=== PATIENT | female | born 1995 | race American Indian/Alaskan Native ===

== ENCOUNTER 2021-02-18 18:32 | Emergency (ER) | payer BC ==
[2021-02-18 20:13] LABS: Bacteria,Urine 1+ /HPF (Negative); Bilirubin,Urine NEG (Negative); Blood,Urine NEG (Negative); Color,Urine Yellow (Yellow); Mucus,Urine FEW /HPF; RBC,Urine < 1.0 /HPF (0.0-6.0); Urobilinogen,Urine < 2.0 mg/dL (<2.0); WBC,Urine < 1.0 /HPF (0.0-6.0)
[2021-02-18 20:39] LABS: Basophils % (Auto) 0.4 % (0.0-1.8); Eosinophils # (Auto) 0.1 K/mm3 (0.0-0.4); Eosinophils % (Auto) 0.9 % (0.0-4.3); Hematocrit 39.5 % (30.3-42.9); Lymphocytes # (Auto) 2.8 K/mm3 (1.2-5.4); Lymphocytes % (Auto) 36.6 % (13.4-35.0); Mean Corpuscular HGB Conc 33 % (30-34); Mean Corpuscular Volume 83 fl (79-97); Monocytes # (Auto) 0.6 K/mm3 (0.0-0.8); Monocytes % (Auto) 7.4 % (0.0-7.3); Platelet Count 185 K/mm3 (140-440); Red Blood Count 4.74 M/mm3 (3.65-5.03); Red Cell Distribution Width 13.9 % (13.2-15.2)
[2021-02-18] MEDS ORDERED: ACETAMINOPHEN 500 MG TAB PO ONE (21:32)
[2021-02-18 22:08] LABS: Alanine Aminotransferase 9 units/L (7-56); Albumin 3.8 g/dL (3.9-5); Blood Urea Nitrogen 6 mg/dL (7-17); Calcium 8.6 mg/dL (8.4-10.2); Hemolysis Index 7
[2021-02-18 22:17] LABS: BUN/Creatinine Ratio 9
--- NOTE | 2021-02-18 23:53 | Emergency Department Report ---
ED Female HPI - General Chief complaint: Vaginal Bleeding Stated complaint: CRAMPS Source: patient Mode of arrival: Ambulatory Limitations: No Limitations - History of Present Illness Initial comments: Patient is a A0 25-year-old -[place] female who is approximately 8 weeks gestation and who presents to the ED with diffuse lower abdominal pain and vaginal spotting for the last 2 days. Patient states that the spotting has been intermittent but the pain in the lower abdomen has been persistent and constant. Patient states that she has an appointment with her [employer] physician in the next 4 days but decided come to the ED for evaluation when she noticed that she was having some vaginal spotting. Patient denies dysuria, urinary frequency and urgency, vaginal discharge, low back pain, chest pain, shortness of breath, fever, chills, nausea and vomiting or diarrhea. MD Complaint: vaginal bleeding, pelvic pain -: Sudden, days(s) (2) Location: suprapubic Radiation: non-radiating Severity: moderate Severity scale (0 -10): 6 Quality: cramping, sharp Consistency: constant Improves with: none Worsens with: none Are you Now?: Yes (8 weeks gestation) Associated Symptoms: denies other symptoms, vaginal bleeding, abdominal pain (suprapubic), loss of appetite. denies: vaginal discharge, nausea/vomiting, fever/chills, headaches, dysuria, hematuria, rash, seizure, shortness of breath, syncope, weakness - Related Data Sexually active: Yes : 3 Para: 2 A: 0 Previous Rx's Medication Instructions Recorded Last Taken Type Acetaminophen [Tylenol] 500 mg PO Q6HR PRN #30 tablet 02/19/21 Unknown Rx Allergies Allergy/AdvReac Type Severity Reaction Status Date / Time No Known Allergies Allergy Unverified 02/18/21 19:41 ED Review of Systems ROS: Stated complaint: CRAMPS Other details as noted in HPI Constitutional: denies: chills, fever Eyes: denies: eye pain, eye discharge, vision change ENT: denies: ear pain, throat pain Respiratory: denies: cough, shortness of breath, wheezing Cardiovascular: denies: chest pain, palpitations Endocrine: no symptoms reported Gastrointestinal: abdominal pain (Suprapubic). denies: nausea, vomiting, diarr hea Genitourinary: abnormal menses (vaginal spot). denies: urgency, dysuria, discharge Musculoskeletal: denies: back pain, joint swelling, arthralgia Skin: denies: rash, lesions Neurological: denies: headache, weakness, paresthesias Psychiatric: denies: anxiety, depression Hematological/Lymphatic: denies: easy bleeding, easy bruising ED Past Medical Hx - Past Medical History Previous Medical History?: No - Surgical History Past Surgical History?: No Additional Surgical History: X2 - Social History Smoking Status: Never Smoker Substance Use Type: None - Medications Home Medications: Home Medications Medication Instructions Recorded Confirmed Last Taken Type Acetaminophen [Tylenol] 500 mg PO Q6HR PRN #30 tablet 02/19/21 Unknown Rx ED Physical Exam - General Limitations: No Limitations General appearance: alert, in no apparent distress - Head Head exam: Present: atraumatic, normocephalic, normal inspection - Eye Eye exam: Present: normal appearance, PERRL, EOMI Pupils: Present: normal accommodation - ENT ENT exam: Present: normal exam, normal orophraynx, mucous membranes moist, TM's normal bilaterally, normal external ear exam - Neck Neck exam: Present: normal inspection, full ROM - Respiratory Respiratory exam: Present: normal lung sounds bilaterally. Absent: respiratory distress, wheezes, rales, rhonchi, chest wall tenderness, accessory muscle use, decreased breath sounds, prolonged expiratory - Cardiovascular Cardiovascular Exam: Present: regular rate, normal rhythm, normal heart sounds. Absent: systolic murmur, diastolic murmur, rubs, gallop - GI/Abdominal GI/Abdominal exam: Present: soft, tenderness (Palpable suprapubic tenderness), normal bowel sounds. Absent: guarding, rebound, hyperactive bowel sounds, organomegaly - Extremities Exam Extremities exam: Present: normal inspection, full ROM, normal capillary refill - Back Exam Back exam: Present: normal inspection, full ROM. Absent: tenderness, CVA tenderness (R), CVA tenderness (L), muscle spasm, paraspinal tenderness, vertebral tenderness - Neurological Exam Neurological exam: Present: alert, oriented X3, CN II-XII intact, normal gait, reflexes normal - Psychiatric Psychiatric exam: Present: normal affect, normal mood - Skin Skin exam: Present: warm, dry, intact, normal color. Absent: rash ED Course Vital Signs 02/18/21 02/18/21 02/19/21 19:39 23:15 02:55 Temperature 98.7 F 98.8 F Pulse Rate 88 68 Respiratory 18 18 18 Rate Blood Pressure 119/70 Blood Pressure 119/72 [Left] O2 Sat by Pulse 100 97 Oximetry ED Medical Decision Making - Lab Data Result diagrams: 02/18/21 20:04 02/18/21 20:04 - Radiology Data Radiology results: report reviewed, image reviewed [facility] [address] [place] [address] Ultrasound Report Signed Patient: INEZ VIRAMONTES MR#: [id number] : 1995 Acct:[id number] Age/Sex: 25 / F ADM Date: 02/18/21 Loc: ED Attending Dr: Ordering Physician: MICHAEL MAZARIEGOS Date of Service: 02/18/21 Procedure(s): US OB transvaginal Accession Number(s): [id number] cc: MICHAEL MAZARIEGOS ULTRASOUND OBSTETRIC INDICATION: Vaginal bleeding. TECHNIQUE: Transabdominal. COMPARISON: None available. FINDINGS: GESTATIONAL SAC: Well-defined oval shape and intrauterine in location. YOLK SAC: No significant abnormality. EMBRYO/FETUS: No significant abnormality. - [place]-Rump Length = 1.42 cm = 7 weeks, 5 day(s). - Heart Rate = 180 beats per minute. ADNEXA: No significant abnormality. FREE FLUID: None. ADDITIONAL FINDINGS: None. IMPRESSION: 1. Single, living intrauterine with estimated sonographic age of 7 weeks, 5 day(s). 2. No significant sonographic abnormality of the pelvis. Signer Name: Rolando Ordaz MD Signed: 02/19/2021 5:15 AM Workstation Name: [id number] Transcribed By: MN Dictated By: Rolando Ordaz MD Electronically Authenticated By: Rolando Ordaz MD Signed Date/Time: 02/19/21514 DD/ 3 TD/TT: - Medical Decision Making This is a A0 25-year-old -[place] female who is approximately 8 weeks gestation and who presents to the ED with diffuse lower abdominal pain and vaginal spotting for the last 2 days. Patient states that the spotting has been intermittent but the pain in the lower abdomen has been persistent and constant. Patient states that she has an appointment with her [employer] physician in the next 4 days but decided come to the ED for evaluation when she noticed that she was having some vaginal spotting. In the ED, patient is alert and oriented x3 and is not in any distress. Lab test results were reviewed and are all nonactionable including urinalysis. Transvaginal ultrasound showed a single live IUP of approximately 7 weeks and 5 days with a heart rate of 180 bpm. Patient was discharged home and advised to maintain a complete pelvic rest with no physical or strenuous sexual activities or heavy lifting. Patient was advised to follow-up with [employer] physician as previously scheduled and return to the ED immediately if symptoms get worse. - Differential Diagnosis Threatened miscarriage; UTI; Ovarian cyst; Subchorionic bleed; Fibroids Critical care attestation.: If time is entered above; I have spent that time in minutes in the direct care of this critically ill patient, excluding procedure time. ED Disposition Clinical Impression: Threatened miscarriage, Abdominal pain during in first trimester, Vaginal bleeding in patient after first trimester Disposition: DC-01 TO HOME OR SELFCARE Is pt being admited?: No Does the pt Need Aspirin: No Condition: Stable Instructions: Abdominal Pain During , [id number], Threatened Miscarriage, [id number], Vaginal Bleeding During , First Trimester, [id number] Additional Instructions: All lab test results were reviewed and are all nonactionable. Therefore maint ain a complete pelvic rest with no physical or strenuous sexual activity, while taking Tylenol as needed for pain. Follow-up with your [employer] physician as previously scheduled. Return to the ED immediately if symptoms get worse. Prescriptions: Acetaminophen [Tylenol] 500 mg PO Q6HR PRN #30 tablet PRN Reason: Pain , Severe (7-10) Referrals: TRENT GORDON JR, MD [Staff Physician] - 3-5 Days Forms: Work/School Release Form(ED) Time of Disposition: 23:54 Print Language: ANGUILLAN
[2021-02-19 03:03] VITALS: BP 119/72
--- NOTE | 2021-02-19 05:19 | Ultrasound Report ---
ULTRASOUND OBSTETRIC INDICATION: Vaginal bleeding. TECHNIQUE: Transabdominal. COMPARISON: None available. FINDINGS: GESTATIONAL SAC: Well-defined oval shape and intrauterine in location. YOLK SAC: No significant abnormality. EMBRYO/FETUS: No significant abnormality. - [place]-Rump Length = 1.42 cm = 7 weeks, 5 day(s). - Heart Rate = 180 beats per minute. ADNEXA: No significant abnormality. FREE FLUID: None. ADDITIONAL FINDINGS: None. IMPRESSION: 1. Single, living intrauterine with estimated sonographic age of 7 weeks, 5 day(s). 2. No significant sonographic abnormality of the pelvis. Signer Name: Rolando Ordaz MD Signed: 02/19/2021 5:15 AM Workstation Name: [id number]
--- NOTE | 2021-02-19 05:19 | Ultrasound Report ---
ULTRASOUND OBSTETRIC INDICATION: Vaginal bleeding. TECHNIQUE: Transabdominal. COMPARISON: None available. FINDINGS: GESTATIONAL SAC: Well-defined oval shape and intrauterine in location. YOLK SAC: No significant abnormality. EMBRYO/FETUS: No significant abnormality. - [place]-Rump Length = 1.42 cm = 7 weeks, 5 day(s). - Heart Rate = 180 beats per minute. ADNEXA: No significant abnormality. FREE FLUID: None. ADDITIONAL FINDINGS: None. IMPRESSION: 1. Single, living intrauterine with estimated sonographic age of 7 weeks, 5 day(s). 2. No significant sonographic abnormality of the pelvis. Signer Name: Rolando Ordaz MD Signed: 02/19/2021 5:15 AM Workstation Name: [id number]
== END 2021-02-19 02:55 | disposition home or self-care (01) ==
LOC: ED 18:32
DX: O20.0 Threatened abortion (principal); Z98.890 Other specified postprocedural states; Z79.899 Other long term (current) drug therapy; Z3A.08 8 weeks gestation of pregnancy
CPT/HCPCS: 36415; 76801; 76817; 80053; 81001; 84702; 85025; 86900; 86901; 99284